=== PATIENT | male | born 1965 | race African-American/Black ===

== ENCOUNTER 2022-01-27 09:56 | Emergency (ER) | payer SELFPAY ==
[~2022-01-27] VITALS: Ht 180.3 cm; Wt 72.7 kg
[2022-01-27] MEDS ORDERED: IBUPROFEN 200 MG TABLET. PO ONE (10:30)
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
[2022-01-27 11:35] VITALS: BP 124/85
== END 2022-01-27 11:37 | disposition home or self-care (01) ==
LOC: ER 09:56
DX: S70.11XA Contusion of right thigh, initial encounter (principal); S80.811A Abrasion, right lower leg, initial encounter; S80.212A Abrasion, left knee, initial encounter; F17.200 Nicotine dependence, unspecified, uncomplicated; F10.20 Alcohol dependence, uncomplicated; Y90.9 Presence of alcohol in blood, level not specified; Y08.89XA Assault by other specified means, initial encounter; Y93.89 Activity, other specified; Y92.89 Other specified places as the place of occurrence of the external cause; Y99.8 Other external cause status
CPT/HCPCS: 73552; 73562; 73590; 99284